=== PATIENT | female | born 1975 | race Caucasian/White ===

== ENCOUNTER 2018-11-26 17:20 | Emergency (ER) | payer OTHER ==
[~2018-11-26] VITALS: Ht 182.8 cm; Wt 117.9 kg
[2018-11-26] MEDS ORDERED: ROBAXIN500 M1 PO (20:18)
[2018-11-26] MEDS ORDERED: MEDROL DOSEPAK4 MG PO (20:18)
== END 2018-11-26 20:24 | disposition home or self-care (01) ==
LOC: ED 17:20
DX: M54.12 Radiculopathy, cervical region (principal); E03.9 Hypothyroidism, unspecified; Z88.1 Allergy status to other antibiotic agents

== ENCOUNTER 2018-12-25 19:29 | Emergency (ER) | payer OTHER ==
[~2018-12-25] VITALS: Ht 182.8 cm; Wt 131.1 kg
[~2018-12-25 19:29] MED LIST: MEDROL DOSEPAK4 MG PO; ROBAXIN500 M1 PO
[2018-12-25] MEDS ORDERED: MEDI-MECLIZINE25 MG PO (22:30)
[2018-12-25] MEDS ORDERED: Orphenadrine C100 MG PO (22:30)
== END 2018-12-25 22:45 | disposition home or self-care (01) ==
LOC: ED 19:29
DX: S16.1XXA Strain of muscle, fascia and tendon at neck level, initial encounter (principal); R42 Dizziness and giddiness; M50.322 Other cervical disc degeneration at C5-C6 level; G89.29 Other chronic pain; M54.5 Low back pain; M25.519 Pain in unspecified shoulder; Z88.1 Allergy status to other antibiotic agents; Z79.899 Other long term (current) drug therapy

== ENCOUNTER → 2019-05-17 | Outpatient (CLI) | payer OTHER ==
[~2019-05-17] MED LIST changes: +24 HOUR ALLERG9.9 ML NAS; +CETIRIZINE10 MG PO; +CIPRODEX 0.3%-7.5 ML OT; +FLUOXETINE HYDR20 M1 PO; +MEDI-MECLIZINE25 MG PO; +OMNICEF300 MG PO; +Orphenadrine C100 MG PO; +SYNTHROID,LEVO75 MCG PO; +Synthroid,Lev200 MCG PO; +VITAMIN D22000 UNIT PO
== END | disposition home or self-care (01) ==
LOC: RAD 11:08
DX: M47.817 Spondylosis without myelopathy or radiculopathy, lumbosacral region (principal)

== ENCOUNTER 2019-06-12 11:17 | Emergency (ER) | payer OTHER ==
[~2019-06-12] VITALS: Ht 182.8 cm; Wt 128.8 kg
[~2019-06-12 11:17] MED LIST changes: -24 HOUR ALLERG9.9 ML NAS; -CETIRIZINE10 MG PO; -CIPRODEX 0.3%-7.5 ML OT; -FLUOXETINE HYDR20 M1 PO; -OMNICEF300 MG PO; -SYNTHROID,LEVO75 MCG PO; -Synthroid,Lev200 MCG PO; -VITAMIN D22000 UNIT PO
[2019-06-12] MEDS ORDERED: MEDROL DOSEPAK4 MG PO (12:38)
[2019-06-12] MEDS ORDERED: ROBAXIN500 M1 PO (12:38)
[2019-07-10] MEDS ORDERED: MEDROL DOSEPAK4 MG PO (20:52)
[2019-07-11] MEDS ORDERED: FLUOXETINE HYDR20 M1 PO (18:31)
[2019-07-11] MEDS ORDERED: Synthroid,Lev200 MCG PO (18:32)
[2019-07-11] MEDS ORDERED: CETIRIZINE10 MG PO (18:33)
[2019-07-11] MEDS ORDERED: SYNTHROID,LEVO75 MCG PO (18:33)
[2019-07-11] MEDS ORDERED: 24 HOUR ALLERG9.9 ML NAS (18:34)
[2019-07-11] MEDS ORDERED: VITAMIN D22000 UNIT PO (18:35)
== END 2019-06-12 12:42 | disposition home or self-care (01) ==
LOC: ED 11:17
DX: S39.012A Strain of muscle, fascia and tendon of lower back, initial encounter (principal); M19.90 Unspecified osteoarthritis, unspecified site; Z88.1 Allergy status to other antibiotic agents; Z88.6 Allergy status to analgesic agent; Z88.8 Allergy status to other drugs, medicaments and biological substances; Z91.040 Latex allergy status; X58.XXXA Exposure to other specified factors, initial encounter; Y93.89 Activity, other specified; Y92.89 Other specified places as the place of occurrence of the external cause; Y99.8 Other external cause status

== ENCOUNTER 2019-06-14 13:53 | Emergency (ER) | payer OTHER ==
[~2019-06-14] VITALS: Ht 182.8 cm; Wt 128.8 kg
[2019-06-14] MEDS ORDERED: CIPRODEX 0.3%-7.5 ML OT (14:28)
[2019-06-14] MEDS ORDERED: OMNICEF300 MG PO (14:28)
[2019-07-10] MEDS ORDERED: MEDROL DOSEPAK4 MG PO (20:52)
[2019-07-11] MEDS ORDERED: FLUOXETINE HYDR20 M1 PO (18:31)
[2019-07-11] MEDS ORDERED: Synthroid,Lev200 MCG PO (18:32)
[2019-07-11] MEDS ORDERED: CETIRIZINE10 MG PO (18:33)
[2019-07-11] MEDS ORDERED: SYNTHROID,LEVO75 MCG PO (18:33)
[2019-07-11] MEDS ORDERED: 24 HOUR ALLERG9.9 ML NAS (18:34)
[2019-07-11] MEDS ORDERED: VITAMIN D22000 UNIT PO (18:35)
== END 2019-06-14 14:46 | disposition home or self-care (01) ==
LOC: ED 13:53
DX: H66.93 Otitis media, unspecified, bilateral (principal); Z88.1 Allergy status to other antibiotic agents; Z88.6 Allergy status to analgesic agent; Z91.040 Latex allergy status; Z88.8 Allergy status to other drugs, medicaments and biological substances

== ENCOUNTER → 2020-07-21 | Outpatient (CLI) | payer OTHER ==
[~2020-07-21] MED LIST changes: +24 HOUR ALLERG9.9 ML NAS; +CETIRIZINE10 MG PO; +CIPRODEX 0.3%-7.5 ML OT; +FLUOXETINE HYDR20 M1 PO; +Fioricet 325 MG1 TAB PO; +OMNICEF300 MG PO; +SYNTHROID,LEVO75 MCG PO; +Synthroid,Lev200 MCG PO; +VITAMIN D22000 UNIT PO
== END | disposition home or self-care (01) ==
LOC: RAD 14:39
PROVIDERS: ATTEND Nurse Practitioner Primary Care
DX: M54.2 Cervicalgia (principal)

== ENCOUNTER 2020-07-22 16:52 | Emergency (ER) | payer OTHER ==
[~2020-07-22] VITALS: Wt 128.8 kg
[~2020-07-22 16:52] MED LIST changes: -Fioricet 325 MG1 TAB PO
[2020-07-22 19:26] LABS: BASO # 0.1 10*3/uL (0.0-0.1); BASO % 0.5 % (0.0-1.0); EOS % 0.3 % (1.0-4.0); HEMATOCRIT 45.2 % (37.0-47.0); LYMPH % 17.2 % (27.0-41.0); MEAN CORPUSCULAR HGB 29.9 pg (27.0-31.0); MEAN CORPUSCULAR HGB CONC 33.2 g/dl (33.0-37.0); MEAN PLATELET VOLUME 9.9 fl (9.6-12.3); MONO # 0.7 10*3/uL (0.1-1.0); MONO % 5.9 % (3.0-9.0); NEUT # 8.6 10*3/uL (2.3-7.9); NEUT % 75.7 % (47.0-73.0); PLATELET COUNT AUTOMATED 259 10*3/uL (130-400); RED BLOOD COUNT 5.02 10*6/uL (4.10-5.10); RED CELL DISTRI WIDTH 11.7 % (0-14.5); WHITE BLOOD COUNT 11.3 10*3/uL (4.8-10.8)
[2020-07-22 19:41] LABS: ALBUMIN 3.4 gm/dl (3.1-4.5); ALKALINE PHOSPHATASE 73 U/L (45-117); BUN 10 mg/dl (7-24); CREATININE 0.82 mg/dL (0.55-1.02); LIPASE 64 U/L (73-393); SGOT/AST 10 IU/L (3-35); SGPT/ALT 29 U/L (12-78); TOTAL PROTEIN 7.6 gm/dL (6.4-8.2)
[2020-07-22 19:45] LABS: COLOR YELLOW (YELLOW)
[2020-07-22 19:46] LABS: BILIRUBIN NEGATIVE; BLOOD NEGATIVE (NEGATIVE); CLARITY CLOUDY (CLEAR); GLUCOSE NEGATIVE; KETONE 2+; LEUKO ESTERASE 1+ (NEGATIVE); NITRITE NEGATIVE (NEGATIVE); SPECIFIC GRAVITY 1.015 (1.001-1.030)
[2020-07-22 19:50] LABS: RBC 0-2 rbc/hpf (0-2)
[2020-07-22 19:51] LABS: BACTERIA 2+; EPITHELIAL CELLS TNTC; MUCOUS TRACE
[2020-07-22 20:01] LABS: CHLORIDE 104 mmol/L (98-107); POTASSIUM 4.1 mmol/L (3.5-5.1); SODIUM 137 mmol/L (136-145)
[2020-07-23] MEDS ORDERED: Fioricet 325 MG1 TAB PO (00:09)
== END 2020-07-23 00:40 | disposition home or self-care (01) ==
LOC: ED 16:52
PROVIDERS: Student in an Organized Health Care Education/Training Program
DX: R51 Headache (principal); Z88.8 Allergy status to other drugs, medicaments and biological substances; Z79.899 Other long term (current) drug therapy

== ENCOUNTER → 2020-11-21 | Outpatient (CLI) | payer OTHER ==
[~2020-11-21] MED LIST changes: +Fioricet 325 MG1 TAB PO
== END | disposition home or self-care (01) ==
LOC: RAD 08:41
PROVIDERS: ATTEND Nurse Practitioner Primary Care
DX: Z01.818 Encounter for other preprocedural examination (principal); M50.322 Other cervical disc degeneration at C5-C6 level; E03.9 Hypothyroidism, unspecified

== ENCOUNTER → 2020-12-04 | Outpatient (CLI) | payer OTHER ==
[2020-12-04 13:17] LABS: CHLORIDE 102 mmol/L (98-107); POTASSIUM 3.8 mmol/L (3.5-5.1); SODIUM 136 mmol/L (136-145)
[2020-12-04 13:33] LABS: ALBUMIN 3.6 gm/dl (3.1-4.5); ALKALINE PHOSPHATASE 96 U/L (45-117); BUN 7 mg/dl (7-24); CREATININE 0.91 mg/dL (0.55-1.02); SGOT/AST 11 IU/L (3-35); SGPT/ALT 28 U/L (12-78); TOTAL PROTEIN 7.8 gm/dL (6.4-8.2)
[2020-12-04 13:57] LABS: FREE T4 1.42 ng/dl (0.76-1.46)
== END | disposition home or self-care (01) ==
LOC: LAB 11:47 → US 12:00
PROVIDERS: ATTEND Nurse Practitioner Primary Care
DX: E03.9 Hypothyroidism, unspecified (principal); I77.6 Arteritis, unspecified; M79.89 Other specified soft tissue disorders; R20.2 Paresthesia of skin; R20.0 Anesthesia of skin

== ENCOUNTER 2021-03-07 10:17 | Emergency (ER) | payer OTHER ==
[~2021-03-07] VITALS: Wt 127.0 kg
[2021-03-07] MEDS ORDERED: PREDNISONE50 MG PO (14:10)
[2021-03-07] MEDS ORDERED: HYDROCODONE-AC1 EAC1 PO (14:10)
== END 2021-03-07 14:23 | disposition home or self-care (01) ==
LOC: ED 10:17
DX: S39.012A Strain of muscle, fascia and tendon of lower back, initial encounter (principal); S16.1XXA Strain of muscle, fascia and tendon at neck level, initial encounter; Z88.8 Allergy status to other drugs, medicaments and biological substances; Z79.899 Other long term (current) drug therapy; Z98.890 Other specified postprocedural states; X58.XXXA Exposure to other specified factors, initial encounter; Y93.89 Activity, other specified; Y92.89 Other specified places as the place of occurrence of the external cause; Y99.8 Other external cause status

== ENCOUNTER 2021-08-30 16:06 | Emergency (ER) | payer OTHER ==
[~2021-08-30] VITALS: Ht 182.8 cm; Wt 127.0 kg
[~2021-08-30 16:06] MED LIST changes: +HYDROCODONE-AC1 EAC1 PO; +PREDNISONE50 MG PO
[2021-08-30 20:43] LABS: BASO # 0.1 10*3/uL (0.0-0.1); EOS # 0.1 10*3/uL (0.0-0.4); EOS % 0.8 % (1.0-4.0); HEMATOCRIT 46.7 % (37.0-47.0); LYMPH # 3.1 10*3/uL (1.3-4.4); MEAN CELL VOLUME 88.6 fl (81.0-99.0); MEAN CORPUSCULAR HGB CONC 32.8 g/dl (33.0-37.0); MEAN PLATELET VOLUME 9.9 fl (9.6-12.3); MONO # 0.6 10*3/uL (0.1-1.0); NEUT # 6.5 10*3/uL (2.3-7.9); NEUT % 61.8 % (47.0-73.0); PLATELET COUNT AUTOMATED 321 10*3/uL (130-400); RED BLOOD COUNT 5.27 10*6/uL (4.10-5.10); WHITE BLOOD COUNT 10.5 10*3/uL (4.8-10.8)
[2021-08-30 20:57] LABS: ALBUMIN 3.3 gm/dl (3.1-4.5); ALKALINE PHOSPHATASE 73 U/L (45-117); BUN 9 mg/dl (7-24); CHLORIDE 107 mmol/L (98-107); CREATININE 0.76 mg/dL (0.55-1.02); LIPASE 57 U/L (73-393); POTASSIUM 3.7 mmol/L (3.5-5.1); SGOT/AST 17 IU/L (3-35); SGPT/ALT 32 U/L (12-78); SODIUM 139 mmol/L (136-145); TOTAL PROTEIN 7.1 gm/dL (6.4-8.2)
[2021-08-30 20:59] LABS: BILIRUBIN Negative (Negative); BLOOD Negative (Negative); CLARITY Clear (Clear); COLOR Yellow (Yellow); GLUCOSE Negative (Negative); KETONE 1+ (Negative); LEUKO ESTERASE Trace (Negative); NITRITE Negative (Negative); SPECIFIC GRAVITY 1.015 (1.001-1.030); UROBILINOGEN 0.2 E.U./dl (0.0-1.0)
[2021-08-30 21:15] LABS: BACTERIA TRACE; RBC 0-2 rbc/hpf (0-2)
[2021-08-30] MEDS ORDERED: PYRIDIUM100 MG PO (23:25)
[2021-08-30] MEDS ORDERED: SEPTDS PO (23:25)
== END 2021-08-31 00:25 | disposition home or self-care (01) ==
LOC: ED 16:06
PROVIDERS: Physician Assistant
DX: R30.0 Dysuria (principal); M54.50 Low back pain, unspecified; R10.30 Lower abdominal pain, unspecified; Z88.1 Allergy status to other antibiotic agents; Z88.8 Allergy status to other drugs, medicaments and biological substances; Z79.899 Other long term (current) drug therapy

== ENCOUNTER → 2021-09-05 | Outpatient (CLI) | payer OTHER ==
[~2021-09-05] MED LIST changes: +PYRIDIUM100 MG PO; +SEPTDS PO
== END | disposition home or self-care (01) ==
LOC: COVID19 15:10
PROVIDERS: ATTEND Internal Medicine
DX: Z11.52 Encounter for screening for COVID-19 (principal)

== ENCOUNTER 2021-10-01 14:48 | Emergency (ER) | payer OTHER ==
[~2021-10-01] VITALS: Ht 182.8 cm; Wt 127.0 kg
[2021-10-01 15:37] LABS: BASO % 0.3 % (0.0-1.0); EOS # 0.2 10*3/uL (0.0-0.4); EOS % 2.7 % (1.0-4.0); HEMATOCRIT 50.6 % (37.0-47.0); LYMPH # 1.1 10*3/uL (1.3-4.4); LYMPH % 17.1 % (27.0-41.0); MEAN CELL VOLUME 84.5 fl (81.0-99.0); MEAN CORPUSCULAR HGB 28.9 pg (27.0-31.0); MEAN CORPUSCULAR HGB CONC 34.2 g/dl (33.0-37.0); MEAN PLATELET VOLUME 10.6 fl (9.6-12.3); MONO # 0.3 10*3/uL (0.1-1.0); MONO % 5.3 % (3.0-9.0); NEUT # 4.7 10*3/uL (2.3-7.9); NEUT % 74.3 % (47.0-73.0); PLATELET COUNT AUTOMATED 171 10*3/uL (130-400); RED BLOOD COUNT 5.99 10*6/uL (4.10-5.10); RED CELL DISTRI WIDTH 12.2 % (0-14.5); WHITE BLOOD COUNT 6.4 10*3/uL (4.8-10.8)
[2021-10-01 15:52] LABS: ALBUMIN 3.1 gm/dl (3.1-4.5); ALKALINE PHOSPHATASE 44 U/L (45-117); BUN 10 mg/dl (7-24); CHLORIDE 99 mmol/L (98-107); CREATININE 1.03 mg/dL (0.55-1.02); SGOT/AST 44 IU/L (3-35); SGPT/ALT 36 U/L (12-78); SODIUM 133 mmol/L (136-145); TOTAL PROTEIN 7.5 gm/dL (6.4-8.2)
[2021-10-01] MEDS ORDERED: ZOFRAN4 MG PO (17:07)
[2021-10-01] MEDS ORDERED: DECADRON6 M1 PO (17:07)
== END 2021-10-01 18:45 | disposition home or self-care (01) ==
LOC: ED 14:48
PROVIDERS: Family Medicine
DX: U07.1 COVID-19 (principal); J12.82 Pneumonia due to coronavirus disease 2019; N17.0 Acute kidney failure with tubular necrosis; R11.2 Nausea with vomiting, unspecified; Z88.1 Allergy status to other antibiotic agents; Z88.8 Allergy status to other drugs, medicaments and biological substances; Z79.899 Other long term (current) drug therapy; Z79.2 Long term (current) use of antibiotics; Z98.890 Other specified postprocedural states

== ENCOUNTER 2021-10-11 16:46 | Emergency (ER) | payer OTHER ==
[~2021-10-11] VITALS: Ht 182.9 cm; Wt 127.5 kg
[~2021-10-11 16:46] MED LIST changes: +DECADRON6 M1 PO; +ZOFRAN4 MG PO
[2021-10-11 18:07] LABS: HEMATOCRIT 45.4 % (37.0-47.0); MEAN CELL VOLUME 90.8 fl (81.0-99.0); MEAN CORPUSCULAR HGB CONC 31.9 g/dl (33.0-37.0); PLATELET COUNT AUTOMATED 441 10*3/uL (130-400); RED CELL DISTRI WIDTH 12.4 % (0-14.5); WHITE BLOOD COUNT 14.1 10*3/uL (4.8-10.8)
[2021-10-11 18:25] LABS: INTERNATIONAL NORM RATIO 1.1 (2.0-3.5)
[2021-10-11 18:26] LABS: ALBUMIN 2.7 gm/dl (3.1-4.5); ALKALINE PHOSPHATASE 56 U/L (45-117); BUN 14 mg/dl (7-24); CHLORIDE 104 mmol/L (98-107); CREATININE 0.66 mg/dL (0.55-1.02); POTASSIUM 3.8 mmol/L (3.5-5.1); SGOT/AST 13 IU/L (3-35); SGPT/ALT 83 U/L (12-78); SODIUM 132 mmol/L (136-145); TOTAL PROTEIN 6.5 gm/dL (6.4-8.2)
[2021-10-11 18:29] LABS: TROPONIN I < 0.015 ng/ml (<0.045)
[2021-10-11 18:57] LABS: ATYPICAL LYMPHS 1 % (0-0); TOTAL CELLS COUNTED 100 #CELLS
[2021-10-11 18:58] LABS: BURR CELLS FEW; PLATELET SUFFICIENCY HIGH (NORMAL)
[2021-10-11] MEDS ORDERED: BENZONATATE100 M1 PO (21:15)
== END 2021-10-11 21:24 | disposition home or self-care (01) ==
LOC: ED 16:46
PROVIDERS: Physician Assistant
DX: U07.1 COVID-19 (principal); J12.82 Pneumonia due to coronavirus disease 2019; Z88.1 Allergy status to other antibiotic agents; Z88.8 Allergy status to other drugs, medicaments and biological substances; Z88.6 Allergy status to analgesic agent; Z79.899 Other long term (current) drug therapy

== ENCOUNTER 2021-11-03 16:34 | Emergency (ER) | payer OTHER ==
[~2021-11-03 16:34] MED LIST changes: +BENZONATATE100 M1 PO
[2021-11-03 17:43] LABS: BILIRUBIN Negative (Negative); BLOOD Negative (Negative); CLARITY Clear (Clear); COLOR Yellow (Yellow); GLUCOSE Negative (Negative); KETONE Negative (Negative); LEUKO ESTERASE Negative (Negative); NITRITE Negative (Negative)
[2021-11-03 18:02] LABS: BACTERIA 1+; EPITHELIAL CELLS 31-40; MUCOUS 1+; WBC 0-2 wbc/hpf (0-5)
[2021-11-03 19:27] LABS: BASO # 0.1 10*3/uL (0.0-0.1); BASO % 1.1 % (0.0-1.0); EOS # 0.1 10*3/uL (0.0-0.4); EOS % 0.8 % (1.0-4.0); HEMATOCRIT 42.4 % (37.0-47.0); LYMPH # 2.9 10*3/uL (1.3-4.4); LYMPH % 33.6 % (27.0-41.0); MEAN CELL VOLUME 89.5 fl (81.0-99.0); MEAN CORPUSCULAR HGB CONC 33.5 g/dl (33.0-37.0); MEAN PLATELET VOLUME 9.7 fl (9.6-12.3); MONO # 0.8 10*3/uL (0.1-1.0); MONO % 9.8 % (3.0-9.0); NEUT # 4.6 10*3/uL (2.3-7.9); NEUT % 53.6 % (47.0-73.0); PLATELET COUNT AUTOMATED 341 10*3/uL (130-400); RED BLOOD COUNT 4.74 10*6/uL (4.10-5.10); RED CELL DISTRI WIDTH 13.2 % (0-14.5); WHITE BLOOD COUNT 8.5 10*3/uL (4.8-10.8)
[2021-11-03 19:51] LABS: ALBUMIN 2.9 gm/dl (3.1-4.5); ALKALINE PHOSPHATASE 72 U/L (45-117); BUN 9 mg/dl (7-24); CHLORIDE 109 mmol/L (98-107); CREATININE 0.58 mg/dL (0.55-1.02); LIPASE 75 U/L (73-393); POTASSIUM 3.8 mmol/L (3.5-5.1); SGOT/AST 20 IU/L (3-35); SGPT/ALT 43 U/L (12-78); SODIUM 139 mmol/L (136-145); TOTAL PROTEIN 6.8 gm/dL (6.4-8.2)
[2021-11-03] MEDS ORDERED: DICYCLOMINE HCL10 MG PO (21:04)
[2021-11-03] MEDS ORDERED: OMEPRAZOLE20 M2 PO (21:04)
== END 2021-11-03 21:36 | disposition home or self-care (01) ==
LOC: ED 16:34
PROVIDERS: Emergency Medicine; Physician Assistant
DX: R10.31 Right lower quadrant pain (principal); Z98.890 Other specified postprocedural states; Z79.899 Other long term (current) drug therapy; Z88.1 Allergy status to other antibiotic agents; Z88.6 Allergy status to analgesic agent

== ENCOUNTER 2021-11-23 09:34 | Emergency (ER) | payer OTHER ==
[~2021-11-23] VITALS: Ht 182.8 cm; Wt 129.3 kg
[~2021-11-23 09:34] MED LIST changes: -CLEOCIN HCL150 MG PO; -IBUPROFEN IB200 M1 PO
[2021-11-23] MEDS ORDERED: IBUPROFEN IB200 M1 PO (10:35)
[2021-11-23] MEDS ORDERED: CLEOCIN HCL150 MG PO (10:35)
== END 2021-11-23 11:02 | disposition home or self-care (01) ==
LOC: ED 09:34
DX: K08.89 Other specified disorders of teeth and supporting structures (principal); R59.0 Localized enlarged lymph nodes; Z88.1 Allergy status to other antibiotic agents; Z88.8 Allergy status to other drugs, medicaments and biological substances; Z79.899 Other long term (current) drug therapy; Z79.2 Long term (current) use of antibiotics; Z98.890 Other specified postprocedural states

== ENCOUNTER → 2021-11-23 | Outpatient (CLI) | payer OTHER ==
[~2021-11-23] MED LIST changes: +CLEOCIN HCL150 MG PO; +DICYCLOMINE HCL10 MG PO; +IBUPROFEN IB200 M1 PO; +OMEPRAZOLE20 M2 PO
== END ==
LOC: RAD 11:06
PROVIDERS: ATTEND Nurse Practitioner Primary Care
DX: U07.1 COVID-19 (principal); J18.9 Pneumonia, unspecified organism

== ENCOUNTER → 2021-11-29 | Outpatient (CLI) | payer OTHER ==
[~2021-11-29] MED LIST changes: +CLEOCIN HCL150 MG PO; +IBUPROFEN IB200 M1 PO
== END ==
LOC: US 08:30
PROVIDERS: ATTEND Nurse Practitioner Primary Care
DX: K76.0 Fatty (change of) liver, not elsewhere classified (principal)

== ENCOUNTER → 2022-02-01 | Outpatient (CLI) | payer OTHER ==
[2022-02-01 12:56] LABS: FREE T4 1.74 ng/dl (0.76-1.46); THYROID STIM HORMONE (HS) 0.097 uIU/ml (0.358-4.75)
== END | disposition home or self-care (01) ==
LOC: LAB 12:06
PROVIDERS: ATTEND Internal Medicine Endocrinology, Diabetes & Metabolism
DX: E03.9 Hypothyroidism, unspecified (principal); E55.9 Vitamin D deficiency, unspecified

== ENCOUNTER 2022-07-24 11:42 | Emergency (ER) | payer OTHER ==
[~2022-07-24] VITALS: Wt 131.5 kg
[2022-07-24 12:02] LABS: BILIRUBIN Negative (Negative); BLOOD Negative (Negative); CLARITY Clear (Clear); COLOR Yellow (Yellow); GLUCOSE Negative (Negative); KETONE Negative (Negative); LEUKO ESTERASE Trace (Negative); NITRITE Negative (Negative); PH 7.5 (4.5-8.0); SPECIFIC GRAVITY 1.015 (1.001-1.030); UROBILINOGEN 0.2 E.U./dl (0.0-1.0)
[2022-07-24 12:15] LABS: RBC 0-2 rbc/hpf (0-2); WBC 0-2 wbc/hpf (0-5)
[2022-07-24] MEDS ORDERED: VIBRAMYCIN100 MG PO (13:39)
== END 2022-07-24 13:44 | disposition home or self-care (01) ==
LOC: ED 11:42
PROVIDERS: Internal Medicine
DX: R30.0 Dysuria (principal); Z20.2 Contact with and (suspected) exposure to infections with a predominantly sexual mode of transmission; Z88.1 Allergy status to other antibiotic agents; Z88.8 Allergy status to other drugs, medicaments and biological substances; Z79.899 Other long term (current) drug therapy; Z98.890 Other specified postprocedural states

== ENCOUNTER → 2022-08-29 | Outpatient (CLI) | payer OTHER ==
[~2022-08-29] MED LIST changes: +VIBRAMYCIN100 MG PO
== END | disposition home or self-care (01) ==
LOC: RAD 16:41
PROVIDERS: ATTEND Family Medicine
DX: M77.31 Calcaneal spur, right foot (principal)

== ENCOUNTER 2023-02-09 03:21 | Emergency (ER) | payer OTHER ==
[~2023-02-09] VITALS: Ht 182.8 cm; Wt 131.5 kg
== END 2023-02-09 05:52 | disposition home or self-care (01) ==
LOC: ED 03:21
DX: S29.019A Strain of muscle and tendon of unspecified wall of thorax, initial encounter (principal); S39.012A Strain of muscle, fascia and tendon of lower back, initial encounter; S16.1XXA Strain of muscle, fascia and tendon at neck level, initial encounter; E66.9 Obesity, unspecified; M79.7 Fibromyalgia; Z88.1 Allergy status to other antibiotic agents; Z88.8 Allergy status to other drugs, medicaments and biological substances; Z79.899 Other long term (current) drug therapy; Z98.890 Other specified postprocedural states; X58.XXXA Exposure to other specified factors, initial encounter; Y93.89 Activity, other specified; Y92.89 Other specified places as the place of occurrence of the external cause; Y99.8 Other external cause status

== ENCOUNTER 2023-10-15 11:05 | Emergency (ER) | payer OTHER ==
[~2023-10-15] VITALS: Ht 182.8 cm; Wt 131.5 kg
[~2023-10-15 11:05] MED LIST changes: +ZITHROMAX250 MG PO
[2023-10-15 12:42] LABS: BASO # 0.1 10*3/uL (0.0-0.1); BASO % 1.6 % (0.0-1.0); EOS # 0.1 10*3/uL (0.0-0.4); EOS % 2.1 % (1.0-4.0); HEMATOCRIT 47.6 % (37.0-47.0); LYMPH # 2.2 10*3/uL (1.3-4.4); LYMPH % 35.9 % (27.0-41.0); MEAN CELL VOLUME 90.2 fl (81.0-99.0); MEAN CORPUSCULAR HGB 30.7 pg (27.0-31.0); MEAN PLATELET VOLUME 9.6 fl (9.6-12.3); MONO # 0.3 10*3/uL (0.1-1.0); MONO % 5.5 % (3.0-9.0); NEUT # 3.4 10*3/uL (2.3-7.9); NEUT % 54.6 % (47.0-73.0); PLATELET COUNT AUTOMATED 249 10*3/uL (130-400); RED BLOOD COUNT 5.28 10*6/uL (4.10-5.10); RED CELL DISTRI WIDTH 12.7 % (0-14.5); WHITE BLOOD COUNT 6.2 10*3/uL (4.8-10.8)
[2023-10-15 13:06] LABS: ALKALINE PHOSPHATASE 64 U/L (46-116); BUN 6 mg/dl (9-23); CHLORIDE 106 mmol/L (98-107); LIPASE 33 U/L (12-53); POTASSIUM 4.2 mmol/L (3.4-5.1); SGPT/ALT 19 U/L (5-49); TOTAL PROTEIN 7.4 gm/dL (6.0-8.0)
[2023-10-15 14:19] LABS: BILIRUBIN Negative (Negative); BLOOD Negative (Negative); CLARITY Clear (Clear); COLOR Yellow (Yellow); GLUCOSE Negative (Negative); KETONE Negative (Negative); LEUKO ESTERASE 1+ (Negative); NITRITE Negative (Negative); SPECIFIC GRAVITY <= 1.005 (1.001-1.030); UROBILINOGEN 0.2 E.U./dl (0.0-1.0)
[2023-10-15 14:31] LABS: BACTERIA 2+
[2023-10-15] MEDS ORDERED: CIPRO500 MG PO (15:31)
[2023-10-15] MEDS ORDERED: ONDANSETRON4 MG SL ×2 (15:31→15:32)
== END 2023-10-15 15:44 | disposition home or self-care (01) ==
LOC: ED 11:05
PROVIDERS: Nurse Practitioner Family
DX: N39.0 Urinary tract infection, site not specified (principal); R10.11 Right upper quadrant pain; R11.2 Nausea with vomiting, unspecified; F41.9 Anxiety disorder, unspecified; M79.7 Fibromyalgia; E87.8 Other disorders of electrolyte and fluid balance, not elsewhere classified; R73.9 Hyperglycemia, unspecified; Z88.1 Allergy status to other antibiotic agents; Z88.8 Allergy status to other drugs, medicaments and biological substances; Z98.890 Other specified postprocedural states

== ENCOUNTER 2023-10-18 09:18 | Emergency (ER) | payer OTHER ==
[~2023-10-18] VITALS: Ht 182.8 cm; Wt 131.5 kg
[~2023-10-18 09:18] MED LIST changes: +CIPRO500 MG PO; +ONDANSETRON4 MG SL
[2023-10-18 10:19] LABS: BASO # 0.1 10*3/uL (0.0-0.1); BASO % 1.3 % (0.0-1.0); EOS # 0.2 10*3/uL (0.0-0.4); EOS % 2.4 % (1.0-4.0); HEMATOCRIT 48.1 % (37.0-47.0); LYMPH # 2.2 10*3/uL (1.3-4.4); LYMPH % 34.3 % (27.0-41.0); MEAN CELL VOLUME 90.9 fl (81.0-99.0); MEAN CORPUSCULAR HGB 30.4 pg (27.0-31.0); MEAN CORPUSCULAR HGB CONC 33.5 g/dl (33.0-37.0); MEAN PLATELET VOLUME 9.9 fl (9.6-12.3); MONO # 0.4 10*3/uL (0.1-1.0); NEUT # 3.5 10*3/uL (2.3-7.9); NEUT % 55.7 % (47.0-73.0); PLATELET COUNT AUTOMATED 260 10*3/uL (130-400); RED BLOOD COUNT 5.29 10*6/uL (4.10-5.10); RED CELL DISTRI WIDTH 12.7 % (0-14.5); WHITE BLOOD COUNT 6.4 10*3/uL (4.8-10.8)
[2023-10-18 10:41] LABS: ALKALINE PHOSPHATASE 68 U/L (46-116); BUN < 5 mg/dl (9-23); CHLORIDE 105 mmol/L (98-107); POTASSIUM 3.6 mmol/L (3.4-5.1); SGPT/ALT 21 U/L (5-49); TOTAL PROTEIN 7.4 gm/dL (6.0-8.0)
== END 2023-10-18 13:25 | disposition home or self-care (01) ==
LOC: ED 09:18
PROVIDERS: Student in an Organized Health Care Education/Training Program
DX: B34.9 Viral infection, unspecified (principal); E86.0 Dehydration; E03.9 Hypothyroidism, unspecified; M79.7 Fibromyalgia; Z88.1 Allergy status to other antibiotic agents; Z88.8 Allergy status to other drugs, medicaments and biological substances; Z98.890 Other specified postprocedural states; Z20.822 Contact with and (suspected) exposure to COVID-19

== ENCOUNTER 2024-12-21 11:56 | Emergency (ER) | payer SELFPAY ==
[~2024-12-21] VITALS: Ht 182.8 cm; Wt 127.0 kg
[2024-12-21] MEDS ORDERED: SODIUM CHLORIDE 0.9% 1,000 ML IV ONE (12:10)
[2024-12-21] MEDS ORDERED: Ondansetron Hydrochloride 4 MG/2 ML VIAL IV ONE (12:15)
[2024-12-21 12:31] LABS: BASO # 0.1 10*3/uL (0.0-0.1); BASO % 1.6 % (0.0-1.0); EOS # 0.1 10*3/uL (0.0-0.4); EOS % 1.8 % (1.0-4.0); HEMATOCRIT 46.8 % (37.0-47.0); MEAN CELL VOLUME 91.6 fl (81.0-99.0); MEAN CORPUSCULAR HGB 30.5 pg (27.0-31.0); MEAN CORPUSCULAR HGB CONC 33.3 g/dl (33.0-37.0); MEAN PLATELET VOLUME 10.2 fl (9.6-12.3); MONO # 0.4 10*3/uL (0.1-1.0); MONO % 5.2 % (3.0-9.0); NEUT # 4.2 10*3/uL (2.3-7.9); PLATELET COUNT AUTOMATED 242 10*3/uL (130-400); RED BLOOD COUNT 5.11 10*6/uL (4.10-5.10); RED CELL DISTRI WIDTH 12.6 % (0-14.5); WHITE BLOOD COUNT 7.1 10*3/uL (4.8-10.8)
[2024-12-21 13:19] LABS: BUN 7 mg/dl (9-23); CHLORIDE 103 mmol/L (98-107); POTASSIUM 3.7 mmol/L (3.4-5.1)
[2024-12-21] MEDS ORDERED: Promethazine Hydrochloride 25 MG/ML VIAL IM ONE (13:45)
[2024-12-21] MEDS ORDERED: Phenergan25 MG PO (15:55)
== END 2024-12-21 16:03 | disposition home or self-care (01) ==
LOC: ED 11:56
PROVIDERS: Internal Medicine
DX: A08.4 Viral intestinal infection, unspecified (principal); R11.2 Nausea with vomiting, unspecified; M79.7 Fibromyalgia; F17.210 Nicotine dependence, cigarettes, uncomplicated; Z88.1 Allergy status to other antibiotic agents; Z88.8 Allergy status to other drugs, medicaments and biological substances; F41.9 Anxiety disorder, unspecified; E66.9 Obesity, unspecified; Z68.30 Body mass index [BMI] 30.0-30.9, adult; Z98.890 Other specified postprocedural states

== ENCOUNTER → 2025-11-17 | Emergency (ER) | payer OTHER ==
[~2025-11-17] VITALS: Ht 182.8 cm; Wt 127.0 kg
[~2025-11-17] MED LIST changes: +BACLOFEN5 MG PO; +LIDOCAINE1 EACH T; +METHOCARBAMOL750 M1 PO; +Motrin,Rufen800 MG PO; +NAPROXEN250 MG PO; +PREDNISONE20 M1 PO; +Phenergan25 MG PO; +Synthroid,Lev150 MCG PO
== END ==
LOC: ED 06:45
DX: S39.012A Strain of muscle, fascia and tendon of lower back, initial encounter (principal); M79.7 Fibromyalgia; Z88.1 Allergy status to other antibiotic agents; Z88.5 Allergy status to narcotic agent; Z88.8 Allergy status to other drugs, medicaments and biological substances; Z98.890 Other specified postprocedural states; X58.XXXA Exposure to other specified factors, initial encounter; Y93.89 Activity, other specified; Y92.89 Other specified places as the place of occurrence of the external cause; Y99.8 Other external cause status

== ENCOUNTER 2025-11-19 12:56 | Emergency (ER) | payer OTHER ==
[~2025-11-19] VITALS: Ht 1828 cm; Wt 129.3 kg
[~2025-11-19 12:56] MED LIST changes: -METHOCARBAMOL750 M1 PO; -Motrin,Rufen800 MG PO; -PREDNISONE20 M1 PO
[2025-11-19] MEDS ORDERED: PREDNISONE20 M1 PO (16:26)
[2025-11-19] MEDS ORDERED: Motrin,Rufen800 MG PO (16:26)
[2025-11-19] MEDS ORDERED: METHOCARBAMOL750 M1 PO (16:26)
== END 2025-11-19 16:38 | disposition home or self-care (01) ==
LOC: ED 12:56
DX: M54.50 Low back pain, unspecified (principal); E03.9 Hypothyroidism, unspecified; M79.7 Fibromyalgia; Z98.890 Other specified postprocedural states; Z88.1 Allergy status to other antibiotic agents; Z88.5 Allergy status to narcotic agent; Z88.8 Allergy status to other drugs, medicaments and biological substances